=== PATIENT | male | born 1985 | race Caucasian/White ===

== ENCOUNTER 2016-06-25 22:41 | Emergency (ER) | payer OTHER ==
--- NOTE | 2016-06-26 02:47 | Emergency Department Report ---
HPI - General Chief Complaint: Rectal Pain Time Seen by Provider: 06/26/16 02:13 - HPI HPI: 31-year-old male presents today with rectal pain since yesterday. Positive for history of hemorrhoids. Patient states that he is usually able to put it back inside, but is unable to do so today. Describes his pain as 10 out of 10 constant, pinching pain. Denies rectal bleeding. Tried Preparation H without relief. Denies fever, chills, nausea, vomiting, chest pain, shortness of breath , abdominal pain. ED Past Medical Hx - Past Medical History Previous Medical History?: Yes Additional medical history: hemorrhoids - Surgical History Past Surgical History?: No Hx Coronary Stent: No Hx Open Heart Surgery: No Hx Pacemaker: No Hx Internal Defibrillator: No Hx Cholecystectomy: No Hx Appendectomy: No Hx Breast Surgery: No - Social History Smoking Status: Never Smoker Substance Use Type: Alcohol - Medications Home Medications: Home Medications Medication Instructions Recorded Confirmed Last Taken Type Docusate Sodium [Colace] 100 mg PO BID PRN #60 capsule 06/26/16 Unknown Rx Hydrocortisone [Anucort-HC SUPPOS] 25 mg RC BID #20 supp.rect 06/26/16 Unknown Rx ED Review of Systems ROS: Stated complaint: HEMORRHOIDS Other details as noted in HPI Constitutional: denies: chills, fever, malaise Eyes: denies: eye pain ENT: denies: ear pain, throat pain, congestion Respiratory: denies: cough, shortness of breath, wheezing Cardiovascular: denies: chest pain, palpitations Endocrine: no symptoms reported Gastrointestinal: denies: abdominal pain, nausea, vomiting, melena, hematochezia Neurological: denies: headache, weakness Physical Exam - Physical Exam Vital Signs: Vital Signs 06/25/16 22:51 Temperature 98.4 F Pulse Rate 95 H Respiratory 20 Rate Blood Pressure 137/96 O2 Sat by Pulse 99 Oximetry Physical Exam: GENERAL: The patient is well-developed and well-nourished. Patient is in NAD. HEAD: Normocephalic. Atraumatic. CHEST/LUNGS: Clear to auscultation throughout. HEART/CARDIOVASCULAR: Regular rate and rhythm. ABDOMEN: Abdomen is soft, nontender. No guarding or rebound tenderness. RECTAL: A large, supple protruding hemorrhoids noted of the anal region. No bluish discoloration noted. EXTREMITIES: Peripheral pulses intact. Capillary refill less than 2 seconds. NEURO: Alert and oriented x 3. Normal gait. ED Course Vital Signs 06/25/16 22:51 Temperature 98.4 F Pulse Rate 95 H Respiratory 20 Rate Blood Pressure 137/96 O2 Sat by Pulse 99 Oximetry ED Medical Decision Making - Lab Data Vital Signs 06/25/16 22:51 Temperature 98.4 F Pulse Rate 95 H Respiratory 20 Rate Blood Pressure 137/96 O2 Sat by Pulse 99 Oximetry - Medical Decision Making 31-year-old male presents today with hemorrhoid pain. Consulted with Dr. Mercado. Patient will be sent home on anucort and will be provided with a referral for surgery. Patient is in no acute distress at this time. He will be discharged home and is encouraged to follow up with a primary care provider. He is encouraged to return to the emergency room for any worsening symptoms. Critical care attestation.: If time is entered above; I have spent that time in minutes in the direct care of this critically ill patient, excluding procedure time. ED Disposition Clinical Impression: Acute hemorrhoid Disposition: DISCHARGED TO HOME OR SELFCARE Is pt being admited?: No Does the pt Need Aspirin: No Condition: Stable Instructions: Hemorrhoids (ED) Additional Instructions: Follow-up with surgery. Return to the emergency department if symptoms worsen. Prescriptions: Docusate Sodium [Colace] 100 mg PO BID PRN #60 capsule PRN Reason: Constipation Hydrocortisone [Anucort-HC SUPPOS] 25 mg RC BID #20 supp.rect Referrals: PRIMARY CAREMD [Primary Care Provider] - 3-5 Days PERLA HUANG MD [Staff Physician] - 3-5 Days Forms: Work/School Release Form(ED), Accompanied Note Time of Disposition: 03:02
[2016-06-26] MEDS ORDERED: TORADOL IM ONE (03:01)
[2016-06-26 03:13] VITALS: BP 132/87
== END 2016-06-26 03:54 | disposition home or self-care (01) ==
LOC: ED 22:41
DX: K64.9 Unspecified hemorrhoids (principal)
CPT/HCPCS: 96372; 99282; J1885

== ENCOUNTER 2016-06-28 11:35 | Observation (INO) | payer OTHER ==
[~2016-06-28 11:35] MED LIST: ANCEF IV ONE; ANCEF/STERILE WATER 2 GM/20 ML 2 GM/20 ML SYRINGE IV SCH; NS IV ONE
[2016-06-28] MEDS ORDERED: ZOFRAN IV PRN ×2 (13:02→15:02)
[2016-06-28] MEDS ORDERED: DILAUDID IV PRN (13:02)
--- NOTE | 2016-06-28 13:02 | Anesthesia Day of Surgery ---
Anesthesia Day of Surgery - Day of Surgery Patient Examined: Yes Patient H&P Reviewed: Yes Patient is NPO: Yes
--- NOTE | 2016-06-28 13:08 | Anesthesia Consultation ---
Anesthesia Consult and Med Hx Date of service: 06/28/16 - Airway Anesthetic Teeth Evaluation: Good ROM Head & Neck: Adequate Mental/Hyoid Distance: Adequate Mallampati Class: Class II Intubation Access Assessment: Probably Good - Pulmonary Exam CTA: Yes - Cardiac Exam Cardiac Exam: RRR - Pre-Operative Health Status ASA Pre-Surgery Classification: ASA2 Proposed Anesthetic Plan: General - Pulmonary Hx Smoking: No Hx Asthma: No - Cardiovascular System Hx Hypertension: No Hx Pacemaker: No Hx Internal Defibrillator: No - Central Nervous System Hx Seizures: No CVA: No - Endocrine Hx Renal Disease: No Hx Cirrhosis: No Hx Insulin Dependent Diabetes: No Hx Hypothyroidism: No - Other Systems Hx Alcohol Use: Yes Hx Obesity: Yes
[2016-06-28] MEDS ORDERED: DILAUDID ONE (13:42)
[2016-06-28] MEDS ORDERED: XYLOCAINE MPF 2% ONE (13:42)
[2016-06-28] MEDS ORDERED: DIPRIVAN 10 MG/ML IV ONE (13:42)
[2016-06-28] MEDS ORDERED: QUELICIN ONE (13:43)
[2016-06-28] MEDS ORDERED: ZEMURON IV ONE (13:43)
[2016-06-28] MEDS ORDERED: VERSED IV NR (14:00)
[2016-06-28] MEDS ORDERED: PEPCID PO NR (14:00)
[2016-06-28] MEDS ORDERED: LACTATED RINGERS 1,000 ML IV SCH (14:00)
[2016-06-28] MEDS ORDERED: MARCAINE-EPI 0.5%-1:200,000 INFILTRATI ONE (14:29)
[2016-06-28] MEDS ORDERED: ROBINUL ONE (14:46)
[2016-06-28] MEDS ORDERED: NEOSTIGMINE ONE (14:46)
[2016-06-28] MEDS ORDERED: ZOFRAN ONE (14:47)
[2016-06-28] MEDS ORDERED: TORADOL ONE (14:47)
[2016-06-28] MEDS ORDERED: NACL 0.9% 1000 ML 1,000 ML ONE (14:51)
[2016-06-28] MEDS ORDERED: MORPHINE IV PRN (15:02)
[2016-06-28] MEDS ORDERED: NACL 0.9% IR ONE (15:05)
[2016-06-28] MEDS ORDERED: NORCO 5/325 PO PRN (15:06)
[2016-06-28] MEDS ORDERED: NUPERCAINAL PR ONE (15:07)
--- NOTE | 2016-06-28 18:59 | Operative Report ---
PREOPERATIVE DIAGNOSIS: A very extensive thrombosed hemorrhoids measuring grossly approximately 5-6 cm. The specimen itself was decompressed during the procedure. PROCEDURES: 1. Anoscopy. 2. Hemorrhoidectomy. SURGEON: Kurt Goff MD ANESTHESIA: General. ESTIMATED BLOOD LOSS: Minimal. DRAINS: None. COMPLICATIONS: None. PROCEDURE IN DETAIL: The patient was taken to the operating room and placed in a jackknife position, prepped and draped in sterile fashion. The anus was gently dilated to four fingers. Anoscope was then gently introduced. Anoscopy was performed in all four quadrants. A very extensive thrombosed hemorrhoids was again isolated at the 8 to 9 o'clock position as previously mentioned. A 3-0 chromic was used to secure the proximal portion of the bundle. Three Penningtons had to be used to grasp the bundle itself and an Allis clamp was used just distal to the dentate line. A 15 blade was used to incise the mucosa. Ligature was used to slowly dissect the entire very large bundle down to the area of the secured chromic suture. A blunt dissection was used with a Kitner to directly visualize the sphincter. The specimen was then removed en bloc. The area was irrigated copiously and dried. Multiple 3-0 chromic [id number] sutures had to be used to secure the using. Once again, the area was irrigated copiously and dried. Checked for hemostasis and noted to be dry. The mucosa was then closed in running fashion up to the dentate line. The rest of the anus once again inspected and grossly noted to be within normal limits. A 0.5% Marcaine with epinephrine was infiltrated throughout for postoperative pain relief. A Gelfoam rectal plug was also placed soaked in Depakene for hemostasis and pain relief. The patient tolerated the procedure well and left the OR in stable condition. JOB# [id number] JÚNIOR/KANNAN
[2016-06-28] MEDS: COLACE PO SCH (23:00)
[2016-06-28] MEDS: D5/0.45NS 1,000 ML IV SCH (23:45)
--- NOTE | 2016-06-29 08:15 | Admit Criteria Form ---
Admission Criteria Documentation: AMBULATORY SURGERY EXCEPTION CRITERIA Ambulatory Surgery Exception Criteria ( Place 'X' for any and all applicable criteria): Surgery or procedure performed on ambulatory basis may require inpatient stay for[A] ANY ONE of the following(1)(2)(3)(4)(5)(6)(7)(8)(9): [] I. A preoperative situation, condition, or finding that warrants inpatient stay as indicated by ANY ONE of the following: [] a) Inpatient care needed because of severity of a disease or condition rather than the surgery (eg, severe cardiac or respiratory disease, severe infection) (15) (16 ) (17) (18) [] b) Emergent procedure (eg, angioplasty for acute ischemia)(19) [] c) Complex surgical approach or situation as indicated by ANY ONE of the following(3): [] i) Open approach needed instead of usual endoscopic, transcatheter, or other less invasive procedure [] ii) Difficult approach because of previous operation [] iii) Airway monitoring required after open neck procedures(20)(21) [] iv) Large mass requiring unusually extensive dissection [] v) Additional complicating feature requiring inpatient care (eg, drain management)(22(23): [] d) Major surgery in a pt with high anesthetic risk as indicated by ANY ONE of the following (2)(3)(5)(7)(8): [] i) ASA risk class III or higher (severe systemic disease impairing function) [D] [] ii) Advanced age (eg, older than 85 years)(14)(24) [] iii) Symptomatic heart failure(25) [] iv) Symptomatic asthma or COPD(8)(21) [] v) Morbid obesity with hemodynamic or respiratory problems(20)( 21)(26)(27) [] vi) Obstructive sleep apnea(20)(21) [] vii) Former premature infants who are younger than 60 weeks [] viii) High risk for severe postoperative abnormalities (eg, severe postoperative hypocalcemia after parathyroidectomy for severe hyperparathyroidism)(27)( 28) [] ix) Unstable angina(25) [] e) Drug-related risk requiring inpatient stay as indicated by ANY ONE of the following(5)(10)(14)(32)(33) [] i) Procedure requires discontinuing drugs or other therapy (eg , antiarrhythmic medication, antiseizure medication), which necessitates inpatient observation or treatment.(18)(31) [] ii) Major surgery and high risk drug use as indicated by ANY ONE of the following: [] 1) Active abuse of cocaine or similar drug [] 2) Monoamine oxidase inhibitor use [] 3) Other drug identified as posing risk [] f) Inadequate outpatient care situation as indicated by ANY ONE of the following(5)(10)(14)(32)(33) [] i) Patient lives remote from medical facility and procedure has urgent complication potential, and temporary nearby residence cannot be arranged [] ii) Patient will have postprocedure incapacitation and inadequate assistance at home, or alternative level of care cannot be arranged. [] iii) Patient will have long general anesthesia or procedure side effect resolution time, and competent person to stay with patient on first postoperative night at home or alternative level of care cannot be arranged. []iv) Other inadequate outpatient situation that cannot be handled by other means [X] II. A perioperative event, condition, or finding that warrants inpatient stay as indicated by ANY ONE of the following (1)(2)(3): [] a) Inadequate physiologic recovery: cardiovascular, respiratory, or hemodynamic status not normal or near preoperative baseline(18) [] b) Hemodynamic instability [] c) Patient not alert with near normal or baseline mental status [] d) Temperature not normal or as expected and not appropriate for outpatient treatment of condition [] e) Ambulatory or appropriate activity level status not yet achieved post procedure [E](34)(35)(36) [] f) Operative site not appropriate (eg, unexpected or excessive drainage or bleeding) [X] g) Postoperative effects not resolved or adequately managed (eg, significant pain or vomiting not appropriate for outpatient or next level of care)(10)(12) [] h) Complicating features requiring inpatient care as indicated by ANY ONE of the following(37): [] i) Severe complications of procedure (eg, bowel injury, airway compromise, vascular injury,severe hemorrhage) [] ii) Extensive (eg, dissection far beyond usual scope of procedure ) or prolonged (eg, 120 minutes beyond usual) surgery needed requiring inpatient postoperative care [] iii) Conversion to an open or complex procedure that requires inpatient care (eg, open vs laparoscopic cholecystectomy, abdominal vs vaginal hysterectomy)(38) [] iv) Comorbid condition or test result identified during or post procedure that requires inpatient care (7) [] v) Malignant hyperthermia(30) [] vi) Other complicating feature requiring inpatient care(22)(23) Inpatient stay may be needed until ALL of the following are present (1)(2)(3)(4) (5)(6)(10)(14)(33)(40): []a) Physiologic recovery: cardiovascular, respiratory, and hemodynamic status normal or near preoperative baseline []b) Hemodynamic stability []c) Patient alert, with near normal or baseline mental status []d) Temperature appropriate: patient afebrile or temperature appropriate for outpt treatment of condition []e) Activity level appropriate: ambulatory or appropriate activity level post procedure []f) Operative site appropriate as indicated by ALL of the following: []i) Site dry or with expected drainage []ii) Any blood noted is as expected for procedure. []g) Postoperative effects resolved or managed as indicated by ALL of the following: []i) Pain management appropriate for outpatient (or next level of) care(10) []ii) Minimal nausea and vomiting: if present, successfully treated with oral medication(12) []iii) Headache, dizziness, or drowsiness (if present) are mild. []h) Voiding status acceptable as indicated by ANY ONE of the following: []i) Voiding spontaneously []ii) No voiding but instructions given for follow-up in 6 to 8 hours []iii) Urinary catheter in place, and instructions given for follow-up []i) Complicating features requiring inpatient care manageable at a lower level of care(37) []j) Comorbid conditions manageable at a lower level of care(37) The original [employer] content created by [employer] has been revised. The portions of the content which have been revised are identified through the use of italic text or in bold, and [employer] has neither reviewed nor approved the modified material. All other unmodified content is copyright [employer]. Please see references footnoted in the original [employer] edition 2016 Admission Criteria Met: Yes
[2016-06-29] MEDS: D5/0.45NS 1,000 ML IV SCH (09:00)
[2016-06-29] MEDS: COLACE PO SCH (09:00)
--- NOTE | 2016-06-29 11:53 | Discharge Summary ---
Short Stay Discharge Plan Activity: other (high fiber diet. d/c today after sitz bath if pain controlled with po narcotics. surfak I po q am x 3. Alleve 1 po q 6 to 8 hrs for breakkthrough pain) Weight Bearing Status: Non-Weight Bearing (no prolonged sitting or straining. sitz bath tid) Diet: other (high fiber diet) Wound: other (cleanse with warm water & soap after each bm) Follow up with: PERLA HUANG MD [Staff Physician] - 7 Days
[2016-06-29 15:53] VITALS: BP 127/61
== END 2016-06-29 16:00 | disposition home or self-care (01) ==
LOC: OR 11:35 → 3A 15:02 → 2B-SURG 18:42
PROVIDERS: ADMIT Surgery; ATTEND Surgery
DX: K64.8 Other hemorrhoids (principal)
CPT/HCPCS: 46260; 88304; 96374; G0378; J0330; J0690; J1170; J1885; J2250; J2270; J2405; J2704; J2710; J7030; J7120